=== PATIENT | male | born 2000 | race Hispanic/Latino ===

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

== ENCOUNTER 2024-11-05 10:07 | Emergency (ER) | payer OTHER ==
[~2024-11-05] VITALS: Ht 177.8 cm; Wt 92.7 kg
[~2024-11-05 10:07] MED LIST: AFRIN30 ML; ALLEGRA-D 24 H1 EACH PO
[2024-11-05] MEDS ORDERED: ROSUVASTATIN CA40 MG (10:33)
[2024-11-05] MEDS ORDERED: CYCLOBENZAPRINE5 MG PO (11:44)
[2024-11-05 11:54] VITALS: PULSE 82; RESP 16; TEMP 98.4; O2SAT 94
== END 2024-11-05 11:54 | disposition home or self-care (01) ==
LOC: EDBD 10:07 → FSED 10:14
DX: S00.83XA Contusion of other part of head, initial encounter (principal); S46.812A Strain of other muscles, fascia and tendons at shoulder and upper arm level, left arm, initial encounter; R51.9 Headache, unspecified; V43.52XA Car driver injured in collision with other type car in traffic accident, initial encounter; Y92.488 Other paved roadways as the place of occurrence of the external cause
CPT/HCPCS: 70450; 99284